=== PATIENT | male | born 1950 | race Caucasian/White ===

== ENCOUNTER 2018-06-21 11:09 | Emergency (ER) | payer OTHER ==
[~2018-06-21] VITALS: Ht 172.7 cm; Wt 71.0 kg
[~2018-06-21 11:09] MED LIST: ASPI81TA28 PO; DIAZ-165 PO; MULT-506 PO; OMEG10007 PO
[2018-06-21 11:12] VITALS: TEMP 36.7; Ht 172.7 cm; Wt 71.0 kg
--- NOTE | 2018-06-21 11:55 | EMERGENCY ROOM VISIT NOTE ---
History Report prepared by Chas: Romana Guthrie Under the Supervision of: Dr. Gulshan Bennett M.D. First contact with patient: 11:23 Chief Complaint: ANXIETY Stated Complaint: ANXIETY, BEING TREATED/NOT WORKING-NECK SECONDARY History of Present Illness The patient is a 67 year old male who presents to the Emergency Room with complaints of sudden anxiety over the last month. Per daughter, the patient is in a "severe psychosis." His daughter states that the patient has had depression, anxiety, insomnia, and panic attacks over the last month. Per daughter, the patient does not have any history of this and states that this all suddenly happened over the last month. His daughter reports that this is the patient's third ER visit in the last month for his mental health. Per daughter, the patient voluntarily admitted himself to [facility] 1 week ago. Per daughter, the patient was given Seroquel at [facility]. Per daughter, the patient was not monitored and passed out from the Seroquel and fractured one of his vertebrae. His daughter states that this happened 1 week ago. The patient reports that this fracture is being managed with a hard collar. He states that he did not have any surgery done but that he had a CT scan of his head done which was normal. He reports that he has been taking 500 mg of Tylenol for the neck pain but denies overdosing. Per daughter, the patient went to his PCP 4 days ago where he was given Ambien. He also reports being on Buspar during the day time. The patient states that he feels unsafe at home knowing whether or not he is going to sleep. He states that he was able to get 4-5 hours of sleep the first night that he was on the Ambien. He reports that the second night he got 2 hours of sleep and that he has not gotten sleep the third night on it or over the last 2 nights. He reports that he also thinks that he had panic attacks before going to bed. He states that last night his heart was racing before bed and reports that he also had chest pain and shortness of breath. The patient states that last night he felt like "he was at the end of his rope" but denies trying to hurt himself. The patient reports that he also felt like he had numbness in his legs. He states that he has had ECGs and echocardiograms done before. The patient reports that he has also talked to a psychologist 2-3 times in the past. He reports a family history of diabetes but denies a past medical history of diabetes. Source of History: patient, family Onset: over the last month Position: other (generalized ) Quality: other (anxiety) Timing: other (sudden) Associated Symptoms: + chest pain, + SOB, + numbness (in legs ) Review of Systems See HPI for pertinent positives & negatives. A total of 10 systems reviewed and were otherwise negative. Past Medical & Surgical Medical Problems: (1) No Known Active Medical Problems Old medical records were reviewed. Nurse's notes were reviewed and I agree with. Family History Diabetes mellitus Social History Smoking Status: Former Smoker Alcohol Use: occasionally Marital Status: Housing Status: lives alone Current/Historical Medications Scheduled Aspirin (Aspirin Ec), 81 MG PO DAILY Buspirone Hcl (Buspirone Hcl), 2 TAB PO TID Fish Oil ([place]-3), 2 CAP PO DAILY Multivitamin (Multivitamin), 1 TAB PO DAILY Scheduled PRN Zolpidem Tartrate (Ambien), 5-10 MG PO HS PRN for Sleep Allergies Coded Allergies: Penicillins (Verified Allergy, Unknown, Childhood allergy, 06/21/18) Physical Exam Vital Signs Date Time Temp Pulse Resp B/P (MAP) Pulse Ox O2 Delivery O2 Flow Rate FiO2 06/21/18 13:00 74 18 148/82 99 Room Air 06/21/18 11:12 36.7 72 17 156/82 97 Room Air Physical Exam General: Non-ill appearing middle aged male in no acute distress. Patient is cooperative and awake, alert, and oriented x3. HEENT: Normal cephalic atraumatic. Pupils are equal round and reactive to light. Extraocular movements are intact. Oropharynx is pink with moist mucous membranes. No swelling of the mouth lips or tongue. Neck: Cervical collar in place. Supple with a midline trachea. No meningeal signs or stiffness, no JVD or bruits. No Stridor. Chest: Clear to auscultation bilaterally. No wheezes or rhonchi. No increased work of breathing. Heart: regular rate and rhythm. Abdomen: Soft nontender, nondistended without rebound guarding or rigidity. Extremities: No cyanosis clubbing or edema. No calf tenderness or assymetry Spine/Back. Non tender to palpation. No CVA tenderness Skin: Good turgor without rashes. Neurologic exam: Cranial nerves two through 12 are intact. Motor and sensation are intact and symmetrical throughout. Medical Decision & Procedures ER Provider Diagnostic Interpretation: Radiology results as stated below per my review and radiologist interpretation: CHEST ONE VIEW PORTABLE CLINICAL HISTORY: Atypical chest pain COMPARISON STUDY: No previous studies for comparison. FINDINGS: The cardiac and mediastinal contours are normal. There is no evidence of focal pulmonary consolidation. There is no evidence of failure. No pleural effusions are visualized.[ IMPRESSION: No active disease in the chest. Electronically signed by: Edmundo Velez M.D. 06/21/2018 12:02 PM Dictated Date/Time: 06/21/2018 12:02 PM Laboratory Results 06/21/18 12:02 Red Blood Count 5.33, Mean Corpuscular Volume 88.4, Mean Corpuscular Hemoglobin 31.1, Mean Corpuscular Hemoglobin Concent 35.2, Mean Platelet Volume 9.7, Neutrophils (%) (Auto) 73.9, Lymphocytes (%) (Auto) 14.4, Monocytes (%) (Auto) 10.4, Eosinophils (%) (Auto) 0.5, Basophils (%) (Auto) 0.3, Neutrophils # (Auto ) 5.44, Lymphocytes # (Auto) 1.06, Monocytes # (Auto) 0.77, Eosinophils # (Auto ) 0.04, Basophils # (Auto) 0.02 06/21/18 12:02 Test 06/21/18 12:00 06/21/18 12:02 Urine Color YELLOW Urine Appearance CLEAR (CLEAR) Urine pH 5.0 (4.5-7.5) Urine Specific [place] 1.018 (1.000-1.030) Urine Protein NEG (NEG) Urine Glucose (UA) NEG (NEG) Urine Ketones NEG (NEG) Urine Occult Blood NEG (NEG) Urine Nitrite NEG (NEG) Urine Bilirubin NEG (NEG) Urine Urobilinogen NEG (NEG) Urine Leukocyte Esterase NEG (NEG) Urine Opiates Screen NEG (NEG) Urine Methadone, Qualitative NEG (NEG) Urine Barbiturates NEG (NEG) Urine Phencyclidine (PCP) Level NEG (NEG) Ur Amphetamine/Methamphetamine NEG (NEG) MDMA (Ecstasy) Screen NEG (NEG) Urine Benzodiazepines Screen POS (NEG) Urine Cocaine Metabolite NEG (NEG) Urine Marijuana (THC) NEG (NEG) White Blood Count 7.37 K/uL (4.8-10.8) Red Blood Count 5.33 M/uL (4.7-6.1) Hemoglobin 16.6 g/dL (14.0-18.0) Hematocrit 47.1 % (42-52) Mean Corpuscular Volume 88.4 fL (80-100) Mean Corpuscular Hemoglobin 31.1 pg (25-34) Mean Corpuscular Hemoglobin Concent 35.2 g/dl (32-36) Platelet Count 250 K/uL (130-400) Mean Platelet Volume 9.7 fL (7.4-10.4) Neutrophils (%) (Auto) 73.9 % Lymphocytes (%) (Auto) 14.4 % Monocytes (%) (Auto) 10.4 % Eosinophils (%) (Auto) 0.5 % Basophils (%) (Auto) 0.3 % Neutrophils # (Auto) 5.44 K/uL (1.4-6.5) Lymphocytes # (Auto) 1.06 K/uL (1.2-3.4) Monocytes # (Auto) 0.77 K/uL (0.11-0.59) Eosinophils # (Auto) 0.04 K/uL (0-0.5) Basophils # (Auto) 0.02 K/uL (0-0.2) RDW Standard Deviation 41.2 fL (36.4-46.3) RDW Coefficient of Variation 12.8 % (11.5-14.5) Immature Granulocyte % (Auto) 0.5 % Immature Granulocyte # (Auto) 0.04 K/uL (0.00-0.02) Anion Gap 8.0 mmol/L (3-11) Est Creatinine Clear Calc Drug Dose 67.8 ml/min Estimated GFR () 85.9 Estimated GFR (Non- 74.1 BUN/Creatinine Ratio 11.6 (10-20) Calcium Level 8.8 mg/dl (8.5-10.1) Total Bilirubin 0.5 mg/dl (0.2-1) Direct Bilirubin 0.2 mg/dl (0-0.2) Aspartate Amino Transf (AST/SGOT) 24 U/L (15-37) Alanine Aminotransferase (ALT/SGPT) 50 U/L (12-78) Alkaline Phosphatase 60 U/L (45-117) Troponin I < 0.015 ng/ml (0-0.045) Total Protein 7.6 gm/dl (6.4-8.2) Albumin 3.9 gm/dl (3.4-5.0) Lipase 172 U/L (73-393) Thyroid Stimulating Hormone (TSH) 2.050 uIu/ml (0.300-4.500) Ethyl Alcohol mg/dL < 3.0 mg/dl (0-3) Laboratory studies as stated above per my review. ECG Per My Interpretation Indication: chest pain Rate (beats per minute): 79 Rhythm: normal sinus Findings: PVC, no acute ischemic change Comparison ECG Date: no prior available ED Course 1128: Past medical records reviewed. The patient was evaluated in room A6, and a complete history and physical examination were performed. 1312: I checked on the patient and he is resting comfortably. 1437: I checked on the patient. Pascale, the piano case maker, is speaking with him now. 1500: I checked on the patient. They are still waiting for placement. 1509: I signed the patient out to Dr. Lucas. Medical Decision Differentials include, but are not limited to; anxiety, depression, suicidal ideation, cardiac disease, electrolyte or metabolic abnormality. This patient comes in as described above he has had significant problems with anxiety, emesis, and insomnia to the point where he has had suicidal ideation he has been inpatient recently. He was in [place] apparently fell and had a neck fracture and was transferred [place] where he had a subsequent full trauma workup. He was then discharged. His daughter does not feel that his mental health issues have been addressed as much because the trauma at the time of taking precedence. He continues to have trouble sleeping. He looks well on exam and is wearing his collar. he has no new neurologic deficits. He has no chest pain or shortness of breath. he says his heart feels like it is racing at times although he has had this extensively workup including several echoes. Multiple blood testing was obtained he was placed in room A6 and was also evaluated by Pascale, our psychiatric piano case maker. He has no acute electrolyte or metabolic abnormalities. He has nothing to suggest acute cardiac disease. He has a normally nonischemic EKG and a normal troponin. He has nothing to suggest acute toxicologic process. He has been medically cleared. He is resting comfortably. Pascale, our psychiatric piano case maker, is currently working on potential placement and he will be signed out at shift change to Dr. Lucas. Medication Reconcilliation Current Medication List: was personally reviewed by me Blood Pressure Screening Patient's blood pressure: Elevated blood pressure Blood pressure disposition: Elevated BP felt to be situational Impression Primary Impression: Anxiety Additional Impression: Insomnia Scribe Attestation The scribe's documentation has been prepared under my direction and personally reviewed by me in its entirety. I confirm that the note above accurately reflects all work, treatment, procedures, and medical decision making performed by me. Departure Information Dispostion Still a Patient Referrals No Doctor, Assigned (PCP) Patient Instructions My [facility] Problem Qualifiers
--- NOTE | 2018-06-21 12:03 | DIAGNOSTIC IMAGING REPORT ---
CHEST ONE VIEW PORTABLE CLINICAL HISTORY: Atypical chest pain COMPARISON STUDY: No previous studies for comparison. FINDINGS: The cardiac and mediastinal contours are normal. There is no evidence of focal pulmonary consolidation. There is no evidence of failure. No pleural effusions are visualized.[ IMPRESSION: No active disease in the chest. Electronically signed by: Edmundo Velez M.D. 06/21/2018 12:02 PM Dictated Date/Time: 06/21/2018 12:02 PM
[2018-06-21] MEDS ORDERED: BUSP5TAB59 PO (12:11)
[2018-06-21] MEDS ORDERED: ZOLP5TAB PO (12:13)
[2018-06-21 12:16] LABS: BASO % 0.3 %; BASO ABS # 0.02 K/uL (0-0.2); EOS % 0.5 %; EOS ABS # 0.04 K/uL (0-0.5); HEMATOCRIT 47.1 % (42-52); HEMOGLOBIN 16.6 g/dL (14.0-18.0); IG# 0.04 K/uL (0.00-0.02); LYMPH % 14.4 %; LYMPH ABS # 1.06 K/uL (1.2-3.4); MEAN CELL VOLUME 88.4 fL (80-100); MEAN CORPUSCULAR HEMOGLOBIN 31.1 pg (25-34); MEAN CORPUSCULAR HGB CONC 35.2 g/dl (32-36); MEAN PLATELET VOLUME 9.7 fL (7.4-10.4); MONO % 10.4 %; MONO ABS # 0.77 K/uL (0.11-0.59); NEUT % 73.9 %; NEUT ABS # 5.44 K/uL (1.4-6.5); PLATELET COUNT 250 K/uL (130-400); RED CELL DISTRIBUTION WIDTH CV 12.8 % (11.5-14.5); RED CELL DISTRIBUTION WIDTH SD 41.2 fL (36.4-46.3); WHITE BLOOD COUNT 7.37 K/uL (4.8-10.8)
[2018-06-21 12:45] LABS: ALBUMIN 3.9 gm/dl (3.4-5.0); CALCIUM 8.8 mg/dl (8.5-10.1); CREATININE 1.05 mg/dl (0.60-1.40); POTASSIUM 3.5 mmol/L (3.5-5.1); TOTAL PROTEIN 7.6 gm/dl (6.4-8.2)
--- NOTE | 2018-06-21 19:43 | EMERGENCY ROOM VISIT NOTE ---
ED Visit Note Patient signed out to me while awaiting possible placement given his difficulty at home with his anxiety. He simply go and reevaluate the pain multiple referrals were made to different facilities for possible inpatient care. No SI or HI. Severe anxiety. Patient had extensive medical workup. We did have multiple referrals to different inpatient units without success. Medically cleared. Do not see acute safety issues far as suicidal aeration or homicidal ideation. Intact fund of knowledge and not having any hallucinations. Discussed with the multiple options at this point. While he tried to see if there is possible inpatient acute referrals he does have follow-up in 36 hours with his primary care physician for this. He has tried multiple medications in the past and discussed with him trial of hydroxyzine as another option. Avoiding benzodiazepines or similar medications as I do not want to provoke delirium. Discussed with him at length this and is agreeable to for this plan. Feel he is safe for discharge at this time. Psychiatric manager care management Daphne was involved with this case and additionally discussed with the patient and the patient's daughter. I do not see any involuntary grounds at this point. Had involved discussion with patient and daughter. Patient states he feels 100% better than earlier today. Continues to deny SI. He wishes to go home. Feel that he can be discharged with outpatient follow-up on Saturday with his regular doctor and psychiatric follow-up on Saturday. Rx for hydroxyzine given. Discussed return precautions.
[2018-06-21] MEDS ORDERED: HYDR25CA PO (19:45)
[2018-06-21] MEDS ORDERED: hydrOXYzine HCL 25 MG TAB PO STA (20:25)
[2018-06-21 20:46] VITALS: BP 138/76; PULSE 70; O2SAT 99
== END 2018-06-21 20:47 | disposition home or self-care (01) ==
LOC: C.EDB 11:10 → C.EDA 20:47
DX: F41.9 Anxiety disorder, unspecified (principal); G47.00 Insomnia, unspecified; F32.9 Major depressive disorder, single episode, unspecified; Z83.3 Family history of diabetes mellitus; Z87.891 Personal history of nicotine dependence; Z79.82 Long term (current) use of aspirin; Z79.899 Other long term (current) drug therapy; Z88.0 Allergy status to penicillin